=== PATIENT | female | born 1985 | race Two or more races ===

== ENCOUNTER 2016-11-14 02:43 | Observation (INO) | payer SELFPAY ==
[~2016-11-14] VITALS: Ht 157.5 cm; Wt 61.2 kg
[2016-11-14 03:39] LABS: Urine RBC None Seen /hpf (0 - 4)
[2016-11-14 03:45] LABS: Basophils # (auto) 0 uL; Basophils % (auto) 0.9 % (0.0-2.0); Eosinophils # (auto) 0.1 uL; Eosinophils % (auto) 2.8 % (0.0-7.0); Hematocrit 34.2 % (36.0-46.0); Hemoglobin 11.2 g/dL (12.2-16.2); Lymphocytes # (auto) 1.4 uL; Lymphocytes % (auto) 32.6 % (10.0-50.0); Mean Corpuscular Hemoglobin 27.7 pg (28.0-32.0); Mean Corpuscular Hgb Conc. 32.6 g/dL (32.0-36.0); Mean Corpuscular Volume 84.9 fL (80.0-100.0); Monocytes # (auto) 0.3 uL; Monocytes % (auto) 6.1 % (0.0-12.0); Neutrophils # (auto) 2.5 uL; Neutrophils % (auto) 57.6 % (37.0-80.0); Platelet Count (auto) 247 10^3/uL (140-450); Red Cell Distribution Width 16.8 % (11.6-16.0); White Blood Cell 4.4 10^3/uL (4.4-10.8)
[2016-11-14 04:00] LABS: Urine Bilirubin Negative (Negative); Urine Blood Negative /uL (Negative); Urine Color Yellow (Yellow); Urine Glucose Normal (Normal); Urine Ketone Negative (Negative); Urine Nitrite Negative (Negative); Urine Squamous Epithelial Cell FEW /hpf (<5); Urine Urobilinogen Normal (Negative); Urine pH 5.5 (5.0-8.0)
[2016-11-14 04:06] LABS: Albumin 3.6 g/dL (3.4-5.0); Calcium 7.5 mg/dL (8.5-10.1); Potassium 3.4 mmol/L (3.5-5.1)
[2016-11-14 04:08] LABS: BUN/Creatinine Ratio 19.2
[2016-11-14 04:13] LABS: Bilirubin, Total 0.2 mg/dL (0.2-1.0); Total Protein 6.3 g/dL (6.4-8.2)
[2016-11-14 04:16] LABS: Acetaminophen 2.7 ug/mL (10-30); Salicylate < 1.7 mg/dL (2.8-20.0)
[2016-11-14] MEDS ORDERED: THIAMINE HCL 100 MG/ML 2ML VIAL ONE (04:16)
[2016-11-14] MEDS ORDERED: MVI in SODIUM CHLORIDE 0.9% 1,010 ML ONE (04:16)
[2016-11-14] MEDS ORDERED: SODIUM CHLORIDE 0.9% 1,000 ML IV ONE (08:30)
[2016-11-14] MEDS ORDERED: THIAMINE INJ 100 MG, MULTIPLE VITAMIN 10 ML, FOLIC ACID 1 MG, MAGNESIUM SULF SDV 50% 8 ... IV SCH ×5 (12:00)
[2016-11-14 12:45] VITALS: BP 112/66
== END 2016-11-14 13:56 | disposition home or self-care (01) | DRG 93 ==
LOC: EDBD 02:43 → ER 02:47 → OVERFLOW 05:12 → ER 13:56
PROVIDERS: ADMIT Emergency Medicine; ATTEND Emergency Medicine
DX: G92 Toxic encephalopathy (principal); F10.120 Alcohol abuse with intoxication, uncomplicated; F15.10 Other stimulant abuse, uncomplicated
CPT/HCPCS: 36415; 70450; 72125; 80053; 80320; 80329; 81001; 82962; 85025; 93005; 96361; 96365; 96366; 99285; G0378; G0434; J3411; J3475; J7030